=== PATIENT | female | born 1945 | race Caucasian/White ===

== ENCOUNTER 2018-04-28 21:34 | Emergency (ER) | payer MEDICAID ==
[~2018-04-28] VITALS: Ht 144.8 cm; Wt 66.0 kg
[~2018-04-28 21:34] MED LIST: HYDR25TA PO; IBUP-2028 PO; LISI-604 PO
[2018-04-28 21:38] VITALS: BP 180/73
== END 2018-04-29 03:00 | disposition left against medical advice (07) ==
LOC: ER 04-29 02:36
DX: R07.9 Chest pain, unspecified (principal); Z53.21 Procedure and treatment not carried out due to patient leaving prior to being seen by health care provider
CPT/HCPCS: 93005